=== PATIENT | male | born 1955 | race Hispanic/Latino ===

== ENCOUNTER 2019-10-19 16:28 | Inpatient (IN) | payer OTHER ==
[~2019-10-19] VITALS: Ht 165.1 cm; Wt 59.3 kg
[2019-10-19] MEDS ORDERED: METHYLPREDNISOLONE SOD SUCC 40MG/ML 1ML ONE (17:12)
[2019-10-19] MEDS ORDERED: CEFTRIAXONE SODIUM 2 GM VIAL ONE (17:12)
[2019-10-19 17:17] LABS: BASOPHILS % (AUTO) 0.1 % (0.0-5.0); EOSINOPHILS % (AUTO) 2.1 % (0.0-8.0); HEMATOCRIT 42.4 % (42-54); LYMPHOCYTES % (AUTO) 7.4 % (21.0-51.0); MEAN CORPUSCULAR HEMOGLOBIN 30.1 pg (27.0-33.0); MEAN CORPUSCULAR HGB CONC 34.7 g/dL (32.0-36.0); MEAN CORPUSCULAR VOLUME 86.7 fL (79-99); MONOCYTES % (AUTO) 4.4 % (3.0-13.0); NEUTROPHILS % (AUTO) 85.8 % (40.0-77.0); PLATELET COUNT (AUTO) 167 K/uL (130-400); RED BLOOD CELL COUNT(AUTO) 4.89 MIL/uL (4.50-6.20); RED CELL DISTRIBUTION WIDTH 12.4 % (11.0-15.5); WHITE BLOOD COUNT (AUTO) 8.2 K/uL (4.8-10.8)
[2019-10-19 17:30] LABS: CARBON DIOXIDE 28 mmol/L (21-32); CHLORIDE 97 mmol/L (101-111); CREATININE 0.9 mg/dL (0.5-1.5); GLOMERULAR FILTR. RATE CALC 90 mL/min (>60); GLUCOSE,RANDOM 258 mg/dL (70-105); POTASSIUM 3.4 mmol/L (3.5-5.1); SODIUM SERUM 137 mmol/L (136-145); UREA NITROGEN, BLOOD 18 mg/dL (7-18)
[2019-10-19 17:33] LABS: INR 0.97 (0.85-1.15); PROTHROMBIN TIME 10.5 SEC (9.6-11.6)
[2019-10-19 17:41] LABS: ALANINE AMINOTRANSFERASE 46 U/L (12-78); ASPARTATE AMINOTRANSFERASE 46 U/L (10-37); BILIRUBIN,TOTAL 0.5 mg/dL (0.2-1.0); CREATINE KINASE, TOTAL 107 U/L (21-232); MYOGLOBIN 67 ng/mL (10-92); TOTAL PROTEIN, SERUM 7.2 g/dL (6.0-8.3); TROPONIN I < 0.04 ng/mL (0.00-0.06)
[2019-10-19 17:59] LABS: APPEARANCE,URINE CLOUDY (CLEAR); BILIRUBIN,URINE SMALL (NEGATIVE); COLOR,URINE YELLOW (YELLOW); GLUCOSE, URINE (UA) 500 mg/dL (NEGATIVE); KETONES,URINE 5 mg/dL (NEGATIVE); LEUKOCYTE ESTERASE ,URINE NEGATIVE (NEGATIVE); NITRATE,URINE NEGATIVE (NEGATIVE); OCCULT BLOOD,URINE SMALL (NEGATIVE); PROTEIN,URINE 100 mg/dL (NEGATIVE)
[2019-10-19 18:15] LABS: BACTERIA,URINE Few /HPF (None Seen); RBC,URINE 0-1 /HPF (0-1); WBC,URINE 0-1 /HPF (0-1)
[2019-10-19 18:16] LABS: AMORPHOUS SEDIMENT,UR Few /LPF (None Seen); HYALINE CASTS, URINE 0-1 /LPF (0-1 /LPF); SQUAMOUS EPITHELIAL CELL,UR Rare /HPF (0-2)
[2019-10-19 18:34] LABS: ABG BASE EXCESS 1.5 mmol/L (-2.0-3.0); ABG HCO3 26.2 mmol/L (21.0-28.0); ABG OXYGEN SATURATION 91.7 % (95.0-99.0); ABG PCO2 42 mmHg (35-48)
[2019-10-19] MEDS ORDERED: FAMOTIDINE 20MG TAB 20 MG TAB ONE (19:10)
[2019-10-19] MEDS ORDERED: AZITHROMYCIN 250 MG TABLET PO ONE (19:11)
[2019-10-19] MEDS ORDERED: ALBUTEROL INHALER 90MCG/INH IH PRN (21:00)
[2019-10-19] MEDS ORDERED: ACETAMINOPHEN 325 MG TAB PO PRN (21:00)
[2019-10-19] MEDS ORDERED: ONDANSETRON HCL 4 MG/2 ML VIAL IVP PRN (21:00)
--- NOTE | 2019-10-19 21:10 | NUR ---
ADMIT NOTE ADMIT TO ROOM 403 VIA STRETCHER FROM ER. PATIENT AWAKE,ALERT, OX3, NO SOB, NO C/O PAIN AT THIS TIME, OXYGEN AT 4 L N/C , PER PATIENT FEELS BETTER THAN WHEN HE CAME IN, NON PRODUCTIVE COUGH, LEFT FOREARM 18 GAUGE CATHETER, WITH IVF INFUSING WELL, TEACH PATIENT PLAN OF CARE AND EXPECTED OUTCOME, PATIENT VERBALIZES UNDERSTANDING VIA TEACH BACK
[2019-10-19 21:20] VITALS: BP 145/74
[2019-10-19] MEDS ORDERED: BENZ-51 PO (22:10)
[2019-10-19] MEDS ORDERED: AZIT250T9 PO (22:10)
[2019-10-19] MEDS ORDERED: FLUT44HFA IH (22:10)
[2019-10-19] MEDS ORDERED: TADA10TA14 PO (22:10)
[2019-10-19] MEDS ORDERED: METF-446 PO (22:10)
[2019-10-19] MEDS ORDERED: PRED10TA3 PO (22:10)
[2019-10-19] MEDS ORDERED: ALBUTERAL IH (22:10)
[2019-10-19] MEDS ORDERED: GABA-529 PO (22:10)
[2019-10-19] MEDS ORDERED: GLIM4TAB36 PO (22:10)
[2019-10-19] MEDS ORDERED: SIMV-46 PO (22:10)
[2019-10-19] MEDS ORDERED: CEPH500C2 PO (22:10)
[2019-10-19] MEDS ORDERED: VITA1CAP17 PO (22:19)
[2019-10-19] MEDS ORDERED: AEC81 PO (22:19)
[2019-10-19] MEDS ORDERED: MULT-1203 PO (22:19)
[2019-10-19] MEDS: SODIUM CHLORIDE 0.9% 1000ML 1,000 ML IV SCH (22:42)
[2019-10-19 23:30] VITALS: BP 118/67
[2019-10-20 03:45] VITALS: BP 132/75
[2019-10-20 05:03] LABS: HEMATOCRIT 44.1 % (42-54); MEAN CORPUSCULAR HGB CONC 34.2 g/dL (32.0-36.0); MEAN CORPUSCULAR VOLUME 87.5 fL (79-99); RED BLOOD CELL COUNT(AUTO) 5.04 MIL/uL (4.50-6.20); RED CELL DISTRIBUTION WIDTH 12.6 % (11.0-15.5); WHITE BLOOD COUNT (AUTO) 8.1 K/uL (4.8-10.8)
[2019-10-20 05:29] LABS: CREATININE 0.8 mg/dL (0.5-1.5); POTASSIUM 4.1 mmol/L (3.5-5.1)
[2019-10-20 08:30] VITALS: BP 118/54
[2019-10-20] MEDS ORDERED: ENOXAPARIN SODIUM 0.5 MG/KG EACH SQ SCH (09:00)
[2019-10-20] MEDS: DEXAMETHASONE 4 MG TAB PO SCH (10:03)
[2019-10-20] MEDS: FAMOTIDINE 20MG TAB 20 MG TAB PO SCH (10:04)
[2019-10-20] MEDS: ENOXAPARIN SODIUM 40 MG/0.4 ML SYRINGE SQ SCH ×2 (10:05→20:20)
[2019-10-20] MEDS: SODIUM CHLORIDE 0.9% 1000ML 1,000 ML IV SCH ×2 (10:50→23:14)
[2019-10-20 11:37] VITALS: BP 115/64
[2019-10-20] MEDS: GUAIFENESIN-CODEINE 5 ML SYRUP PO PRN (11:59)
--- NOTE | 2019-10-20 15:06 | NUR ---
INITIAL: Call placed to pt's room. Pt requesting that CM call and speak w spouse Giselle. Call placed to Giselle(spouse) @ [phone], she mentions that prior to admission pt was independent w ambulation and ADLs. She mentions that the two of them live together. Pt does not receive any HH services or own any DME. Per Giselle, she feels safe and comfortable for pt to return home at co. She mentions however that she is beginning to have a sore throat and has already contacted her physician. Encouraged her to self quarantine, she mentions that she has a thermometer and pulse ox at home. Asked her if she would like to list an alternate emergency contact incase it is needed to which she declines. She was encouraged to seek emergency medical care if her symptoms worsened. Addendum: 10/20/19 at 1511 by MINERVA MELTON Amended: Links added.
[2019-10-20] MEDS ORDERED: PHARMACY COMMUNICATION**REMDESIVIR ORDER MISC SCH (15:30)
[2019-10-20] MEDS ORDERED: POTASSIUM CHLORIDE 20MEQ/100ML 100 ML IV PRN (15:45)
[2019-10-20] MEDS ORDERED: GLUCAGON 1MG KIT 1 MG ML IM PRN (15:45)
[2019-10-20] MEDS ORDERED: ERGOCALCIFEROL (VITAMIN D2) 50,000 UNIT CAPSULE PO ONE (15:45)
[2019-10-20] MEDS ORDERED: DEXTROSE 50%-WATER 50 ML DISP.SYRIN IV PRN (15:45)
[2019-10-20] MEDS ORDERED: LIDOCAINE HCL-MPF 1% 2ML VIAL IV PRN (15:45)
[2019-10-20 16:20] VITALS: BP 145/69
--- NOTE | 2019-10-20 16:24 | NUR ---
PT WAS PLACED ON A NRB MASK AT 15L BY RESPIRATORY AND TAUGHT PURSE LIP BREATHING AND INHALATION THERAPY WITH POSITIVE RESULTS OF OXYGENATION. PT IS CALM AND RESTING COMFORTABLY AT THIS TIME
[2019-10-20] MEDS ORDERED: COMPOUND IV REFRIGERATED 1 EACH IVSOLN MISC PRN (16:45)
[2019-10-20] MEDS: CEFTRIAXONE SODIUM 1 GM IVP SCH (17:03)
[2019-10-20] MEDS: INSULIN HUMULIN R 100 UNIT/ML 3ML SQ SCH ×2 (17:04→20:23)
[2019-10-20] MEDS: FLUTICASONE PROPIONATE 110 MCG IH SCH (17:19)
[2019-10-20] MEDS ORDERED: REMDESIVIR (EUA) 520 200 MG in SODIUM CHLORIDE 0.9% 250 ML IV SCH (18:00)
[2019-10-20] MEDS: AZITHROMYCIN 250 MG TABLET PO SCH (18:04)
[2019-10-20] MEDS: BENZONATATE 100 MG CAPSULE PO SCH (20:18)
[2019-10-20] MEDS: GABAPENTIN 100 MG CAPSULE PO SCH (20:19)
[2019-10-20] MEDS: SIMVASTATIN 20 MG TABLET PO SCH (20:19)
[2019-10-20 20:36] VITALS: BP 166/78
[2019-10-20 23:45] VITALS: BP 118/70
[2019-10-21] MEDS: GUAIFENESIN-CODEINE 5 ML SYRUP PO PRN ×3 (01:00→18:05)
[2019-10-21 03:54] LABS: ABG BASE EXCESS -0.9 mmol/L (-2.0-3.0); ABG HCO3 23.3 mmol/L (21.0-28.0); ABG OXYGEN SATURATION 74.2 % (95.0-99.0); ABG PCO2 38 mmHg (35-48)
[2019-10-21 03:59] VITALS: BP 150/66
[2019-10-21 05:35] LABS: BASOPHILS % (AUTO) 0.1 % (0.0-5.0); HEMATOCRIT 47.1 % (42-54); LYMPHOCYTES % (AUTO) 4.1 % (21.0-51.0); MEAN CORPUSCULAR HEMOGLOBIN 30.2 pg (27.0-33.0); MEAN CORPUSCULAR HGB CONC 34.6 g/dL (32.0-36.0); MEAN CORPUSCULAR VOLUME 87.2 fL (79-99); MONOCYTES % (AUTO) 1.5 % (3.0-13.0); NEUTROPHILS % (AUTO) 93.8 % (40.0-77.0); PLATELET COUNT (AUTO) 178 K/uL (130-400); RED CELL DISTRIBUTION WIDTH 12.8 % (11.0-15.5); WHITE BLOOD COUNT (AUTO) 8.8 K/uL (4.8-10.8)
[2019-10-21] MEDS: FLUTICASONE PROPIONATE 110 MCG IH SCH ×2 (05:55→17:04)
[2019-10-21 06:18] LABS: ALBUMIN 2.5 g/dL (3.5-5.0); BILIRUBIN,DIRECT 0.1 mg/dL (0.0-0.3); BILIRUBIN,TOTAL 0.5 mg/dL (0.2-1.0); CREATININE 0.8 mg/dL (0.5-1.5); MAGNESIUM 1.9 mg/dL (1.80-2.40); POTASSIUM 3.5 mmol/L (3.5-5.1)
[2019-10-21] MEDS: INSULIN HUMULIN R 100 UNIT/ML 3ML SQ SCH ×4 (06:20→21:21)
[2019-10-21 06:46] LABS: CRP QUANTITATIVE 288.4 mg/L (0.00-9.0)
[2019-10-21 08:16] VITALS: BP_SYST 133; BP_SYST 167; BP_DIAS 56; BP_DIAS 84
[2019-10-21] MEDS: ZINC SULFATE 220 CAPSULE PO SCH (08:27)
[2019-10-21] MEDS: DEXAMETHASONE 4 MG TAB PO SCH (08:27)
[2019-10-21] MEDS: BENZONATATE 100 MG CAPSULE PO SCH ×3 (08:27→21:19)
[2019-10-21] MEDS: FAMOTIDINE 20MG TAB 20 MG TAB PO SCH (08:27)
[2019-10-21] MEDS: ASCORBIC ACID 500 MG TAB PO SCH (08:27)
[2019-10-21] MEDS: ENOXAPARIN SODIUM 40 MG/0.4 ML SYRINGE SQ SCH ×2 (08:27→21:24)
[2019-10-21] MEDS: GABAPENTIN 100 MG CAPSULE PO SCH ×2 (08:28→21:26)
[2019-10-21] MEDS: ASPIRIN 81 MG EC TAB PO SCH (08:28)
--- NOTE | 2019-10-21 08:41 | NUR ---
PT REMAINS IN PRONE POSITION WITH HIGH FLOW OXYGEN IN PLACE, TELEMETRY IN PLACE, NO CURRENT S/S OF RESP DISTRESS OR PAIN. BRUISES OF VARIOUS STAGES NOTED ON PT UPPER LEFT SCAPULA AND LOWER LEFT FLANK.
[2019-10-21] MEDS: TADALAFIL 10 MG PO SCH (09:00)
--- NOTE | 2019-10-21 09:17 | NUR ---
CONTINUES TO REST IN PRONE POSITION WITH HIGH FLOW O2 AND NRB MASK AT 15L IN PLACE. A/OX4 WITH NO CURRENT C/O PAIN OR DISCOMFORT. CALM AND PLEASANT.
--- NOTE | 2019-10-21 09:38 | NUR ---
CONTINUES TO REST IN A PRONE POSITION WITH NRB MASK AT 15L AND HI FLOW O2 AT 97%, TELEMETRY IN PLACE, SR WITH NO ECTOPY, A/OX4, CALM AND PLEASANT SURFING ON HIS PHONE. NO CURRENT S/S OR C/O PAIN. PT UNDERSTAND IT IS PREFERRED HE STAY PRONE FOR 16 HOURS DAILY OR HE CAN TOLERATE
--- NOTE | 2019-10-21 10:38 | NUR ---
NO NEW CHANGES IN PT STATUS, REMAINS ON HI FLOW O2 AND 15LNRB MASK AT 98% DISPLAYS EVEN RESP. A/O X4, WITH NO CURRENT C/O PAIN OR DISCOMFORT. LYING PRONE.
--- NOTE | 2019-10-21 11:36 | NUR ---
PT CONTINUES TO RESP WITH HI FLOW OXYGEN AND NRB MASK AT 15L, DISPLAYS 97% WITH EVEN UNLABORED RESP WITH OCCASIONAL COUGHING EPISODES. NEW ORDER TO DISCONTINUE IVF PER David DHILLON NP. NO CURRENT C/O PAIN OR DISCOMFORT. CALM AND PLEASANT.
[2019-10-21 11:40] VITALS: BP 144/57
[2019-10-21] MEDS: SODIUM CHLORIDE 0.9% 1000ML 1,000 ML IV SCH (12:33)
--- NOTE | 2019-10-21 12:52 | NUR ---
REMAINS CALM AND RESTING WITH HI FLOW OXYGEN AND NRB MASK AT 15L IN PLACE. NO CURRENT S/S OF PAIN OR RESP DIFFICULTY AT THIS TIME
--- NOTE | 2019-10-21 13:58 | NUR ---
REMAINS AT REST IN A PRONE POSITION WITH NRB MASK AT 15 AND HI FLOW OXYGEN. O2 SATS OF 98-100% NOTED AT THIS TIME. NO S/S OF PAIN OR DISCOMFORT.
[2019-10-21 16:22] VITALS: BP 151/60
[2019-10-21] MEDS: CEFTRIAXONE SODIUM 1 GM IVP SCH (16:32)
[2019-10-21] MEDS: REMDESIVIR (EUA) 520 100 MG in SODIUM CHLORIDE 0.9% 250 ML IV SCH (16:59)
--- NOTE | 2019-10-21 17:22 | NUR ---
REMAINS RESTING IN A SIDE PRONE POSITION WITH IV ABX PATENT, NRB MASK AT 15L WITH HI FLOW OXYGEN IN PLACE DISPLAYS 98%, NO CURRENT S/S OF RESP DIFFICULTY OR DISTRESS, NO CURRENT S/S OF PAIN OR DISCOMFORT.
[2019-10-21] MEDS: AZITHROMYCIN 250 MG TABLET PO SCH (17:56)
--- NOTE | 2019-10-21 18:17 | NUR ---
ENCOURAGED PT TO REST PRONE OR ON HIS SIDE, CONTINUED HI FLOW OXYGEN WITH NRB MASK IN PLACE AT 15L. IV ABX PATENT, A/OX4, DENIES PAIN OR DISCOMFORT AT THIS TIME, NO CURRENT RESP DISTRESS
[2019-10-21 19:20] VITALS: BP 140/69
[2019-10-21] MEDS: SIMVASTATIN 20 MG TABLET PO SCH (21:19)
[2019-10-22] VITALS (7 sets, daily range): BP systolic 121–187; BP diastolic 52–89
--- NOTE | 2019-10-22 02:17 | NUR ---
First unit of FFP completed with no s/s of transfusion reaction observed. Patient is in stable condition. He continued on high flow @50% plus 6 ltrs of NC with POX between 92 to 98%. Will continue to monitor.
[2019-10-22] MEDS: SODIUM CHLORIDE 0.9% 1000ML 1,000 ML IV SCH ×2 (02:20→15:40)
[2019-10-22] MEDS: FLUTICASONE PROPIONATE 110 MCG IH SCH ×2 (06:00→19:03)
[2019-10-22] MEDS: PHARMACY COMMUNICATION MISC SCH (06:00)
[2019-10-22 06:24] LABS: BASOPHILS % (AUTO) 0.1 % (0.0-5.0); HEMATOCRIT 44.9 % (42-54); LYMPHOCYTES % (AUTO) 3.5 % (21.0-51.0); MEAN CORPUSCULAR HEMOGLOBIN 30.3 pg (27.0-33.0); MEAN CORPUSCULAR HGB CONC 34.5 g/dL (32.0-36.0); MEAN CORPUSCULAR VOLUME 87.7 fL (79-99); MONOCYTES % (AUTO) 3.2 % (3.0-13.0); NEUTROPHILS % (AUTO) 92.9 % (40.0-77.0); PLATELET COUNT (AUTO) 197 K/uL (130-400); RED BLOOD CELL COUNT(AUTO) 5.12 MIL/uL (4.50-6.20); RED CELL DISTRIBUTION WIDTH 12.6 % (11.0-15.5)
[2019-10-22 06:54] LABS: ALBUMIN 2.5 g/dL (3.5-5.0); BILIRUBIN,TOTAL 0.7 mg/dL (0.2-1.0); CREATININE 0.8 mg/dL (0.5-1.5); MAGNESIUM 2.3 mg/dL (1.80-2.40); PHOSPHORUS 2.6 mg/dL (2.5-4.9); POTASSIUM 3.5 mmol/L (3.5-5.1); TOTAL PROTEIN, SERUM 6.8 g/dL (6.0-8.3)
[2019-10-22] MEDS: INSULIN HUMULIN R 100 UNIT/ML 3ML SQ SCH ×4 (06:56→21:00)
--- NOTE | 2019-10-22 07:13 | NUR ---
Bed bath given at 0630. Patient stopped breathing at 0700. [employer] supervisor Ruth portillo. Report given to AM nurse. Addendum: 10/22/19 at 1936 by NICKY GIRON RN RN Disregard above note. Incorrect pt.
--- NOTE | 2019-10-22 08:47 | NUR ---
notified brandon omalley of the bp she ordered hydralazine 10 mg iv prn q6 hr for sbp of greater than 160
[2019-10-22] MEDS: ZINC SULFATE 220 CAPSULE PO SCH (08:59)
[2019-10-22] MEDS: ASCORBIC ACID 500 MG TAB PO SCH (08:59)
[2019-10-22] MEDS: FAMOTIDINE 20MG TAB 20 MG TAB PO SCH (09:00)
[2019-10-22] MEDS: DEXAMETHASONE 4 MG TAB PO SCH (09:00)
[2019-10-22] MEDS: ASPIRIN 81 MG EC TAB PO SCH (09:00)
[2019-10-22] MEDS: TADALAFIL 10 MG PO SCH (09:00)
[2019-10-22] MEDS: GABAPENTIN 100 MG CAPSULE PO SCH ×2 (09:00→20:32)
[2019-10-22] MEDS: ENOXAPARIN SODIUM 40 MG/0.4 ML SYRINGE SQ SCH ×2 (09:01→21:31)
[2019-10-22] MEDS: BENZONATATE 100 MG CAPSULE PO SCH ×3 (09:01→20:32)
[2019-10-22] MEDS: HYDRALAZINE HCL 20 MG/ML VIAL IV PRN (09:03)
--- NOTE | 2019-10-22 10:28 | NUR ---
RD NOTIFICATION Pt admitted with Positive COVID PNA. Pt tolerating 75gm CCD with no report of GI distress. Improved PO intake as of this morning, from 0% over the weekend to 25%, as per RN. Pt with NRB in place as per EMR. Hx DM and HTN. .. Recommend Glucerna BID RD to continue to monitor. Please notify as additional nutrition concerns arise. Thank you.
--- NOTE | 2019-10-22 16:27 | NUR ---
report called to trini london patient ready to be discharge.
[2019-10-22] MEDS: CEFTRIAXONE SODIUM 1 GM IVP SCH (16:37)
[2019-10-22] MEDS: POTASSIUM CHLORIDE 20 MEQ ERTAB PO PRN (17:25)
[2019-10-22] MEDS: REMDESIVIR (EUA) 520 100 MG in SODIUM CHLORIDE 0.9% 250 ML IV SCH (19:03)
[2019-10-22] MEDS: SIMVASTATIN 20 MG TABLET PO SCH (20:32)
[2019-10-22] MEDS: AZITHROMYCIN 250 MG TABLET PO SCH (20:32)
[2019-10-23 00:06] VITALS: BP 161/80
[2019-10-23] MEDS: GUAIFENESIN-CODEINE 5 ML SYRUP PO PRN ×2 (00:33→05:38)
[2019-10-23 03:55] VITALS: BP 154/74
[2019-10-23] MEDS: SODIUM CHLORIDE 0.9% 1000ML 1,000 ML IV SCH (04:15)
--- NOTE | 2019-10-23 04:23 | NUR ---
RT at bedside Pt placed on pulse oximetry due to desaturation of 82%. Patient saturating at 89%. RT increased High Flow FiO2 rate. Will continue to monitor.
[2019-10-23 04:27] LABS: ABG BASE EXCESS -4.5 mmol/L (-2.0-3.0); ABG HCO3 20.9 mmol/L (21.0-28.0); ABG OXYGEN SATURATION 52.6 % (95.0-99.0); ABG PCO2 40 mmHg (35-48)
--- NOTE | 2019-10-23 04:47 | NUR ---
RT at bedside RT at bedside redrawing ABG. Concern for ABG at 0425 as a VBG. Will confirm with redraw.
[2019-10-23 04:57] LABS: ABG BASE EXCESS -3.7 mmol/L (-2.0-3.0); ABG HCO3 20.7 mmol/L (21.0-28.0); ABG OXYGEN SATURATION 81.1 % (95.0-99.0); ABG PCO2 36 mmHg (35-48)
[2019-10-23] MEDS: PHARMACY COMMUNICATION MISC SCH (05:12)
[2019-10-23] MEDS: FLUTICASONE PROPIONATE 110 MCG IH SCH ×2 (05:12→18:00)
[2019-10-23 05:58] LABS: BASOPHILS % (AUTO) 0.1 % (0.0-5.0); HEMATOCRIT 49.5 % (42-54); LYMPHOCYTES % (AUTO) 6.5 % (21.0-51.0); MEAN CORPUSCULAR HEMOGLOBIN 30.4 pg (27.0-33.0); MEAN CORPUSCULAR HGB CONC 34.5 g/dL (32.0-36.0); MEAN CORPUSCULAR VOLUME 87.9 fL (79-99); MONOCYTES % (AUTO) 4.4 % (3.0-13.0); NEUTROPHILS % (AUTO) 88.5 % (40.0-77.0); PLATELET COUNT (AUTO) 270 K/uL (130-400); RED BLOOD CELL COUNT(AUTO) 5.63 MIL/uL (4.50-6.20); RED CELL DISTRIBUTION WIDTH 12.9 % (11.0-15.5); WHITE BLOOD COUNT (AUTO) 15.9 K/uL (4.8-10.8)
[2019-10-23] MEDS: INSULIN HUMULIN R 100 UNIT/ML 3ML SQ SCH ×4 (06:08→21:44)
[2019-10-23 06:19] LABS: ALBUMIN 2.8 g/dL (3.5-5.0); BILIRUBIN,DIRECT 0.2 mg/dL (0.0-0.3); BILIRUBIN,TOTAL 0.8 mg/dL (0.2-1.0); CREATININE 0.7 mg/dL (0.5-1.5); MAGNESIUM 2.4 mg/dL (1.80-2.40); POTASSIUM 3.5 mmol/L (3.5-5.1); TOTAL PROTEIN, SERUM 7.5 g/dL (6.0-8.3)
[2019-10-23 08:39] VITALS: BP 126/69
--- NOTE | 2019-10-23 08:45 | NUR ---
MD VISIT FARZANEH MIRANDA BREAD WRAPPER OPERATOR @ BEDSIDE. UPDATED ON PT'S STATUS & PLAN OF CARE. ORDERS RECEIVED & ENTERED.
[2019-10-23] MEDS: TADALAFIL 10 MG PO SCH (09:00)
[2019-10-23] MEDS: ZINC SULFATE 220 CAPSULE PO SCH (09:17)
[2019-10-23] MEDS: ASCORBIC ACID 500 MG TAB PO SCH (09:17)
[2019-10-23] MEDS: POTASSIUM CHLORIDE 20 MEQ ERTAB PO PRN ×2 (09:18→10:58)
[2019-10-23] MEDS: FAMOTIDINE 20MG TAB 20 MG TAB PO SCH (09:18)
[2019-10-23] MEDS: GABAPENTIN 100 MG CAPSULE PO SCH ×2 (09:18→20:38)
[2019-10-23] MEDS: BENZONATATE 100 MG CAPSULE PO SCH ×3 (09:18→20:39)
[2019-10-23] MEDS: ASPIRIN 81 MG EC TAB PO SCH (09:18)
[2019-10-23] MEDS: DEXAMETHASONE SOD PHOSPHATE 4 MG/ML 1ML VIAL IVP SCH (09:19)
[2019-10-23] MEDS: ENOXAPARIN SODIUM 40 MG/0.4 ML SYRINGE SQ SCH ×2 (09:19→20:40)
[2019-10-23] MEDS: FUROSEMIDE 10 MG/ML 2ML VIAL IV SCH ×2 (09:27→20:37)
[2019-10-23] MEDS: DIAZEPAM 5 MG TABLET PO PRN ×2 (09:28→20:39)
--- NOTE | 2019-10-23 09:35 | NUR ---
STATUS PT PLACED ON BIPAP BY RT ORDERED. PT ASSISTED TO PRONE POSITION @ THIS TIME. TOLERATED WELL. CONT PULSE OX SET UP, 100% SATs. WILL CONTINUE TO MONITOR.
[2019-10-23 12:34] VITALS: BP 117/68
[2019-10-23 15:38] VITALS: BP 114/71
[2019-10-23] MEDS: REMDESIVIR (EUA) 520 100 MG in SODIUM CHLORIDE 0.9% 250 ML IV SCH (17:41)
[2019-10-23] MEDS: AZITHROMYCIN 250 MG TABLET PO SCH (17:41)
[2019-10-23 20:00] VITALS: BP 119/80
[2019-10-23] MEDS: SIMVASTATIN 20 MG TABLET PO SCH (20:38)
--- NOTE | 2019-10-23 22:00 | NUR ---
PT STATUS NURSE RESPONDED TO CALL [facility] TO FIND THAT PT HAD REMOVED BIPAP AND WAS STANDING NEXT TO BED ATTEMPTING TO GO TO RESTROOM. PT ASSISTED BACK TO BED BIPAP REAPPLIED PULSE 0X 97%. PT INSTRUCTED NOT TO REMOVE BIPAP, HE APOLOGIZED AND STATES HE FELT LIKE HE HAD TO HAVE BM. PT REMAINS A&OX3. BED ALARM INITIATED AT THIS TIME.
[2019-10-24] VITALS: BP 142/83
[2019-10-24 03:56] LABS: HEMATOCRIT 45.3 % (42-54); MEAN CORPUSCULAR HEMOGLOBIN 29.8 pg (27.0-33.0); MEAN CORPUSCULAR HGB CONC 34.4 g/dL (32.0-36.0); MEAN CORPUSCULAR VOLUME 86.5 fL (79-99); RED BLOOD CELL COUNT(AUTO) 5.24 MIL/uL (4.50-6.20); RED CELL DISTRIBUTION WIDTH 12.9 % (11.0-15.5); WHITE BLOOD COUNT (AUTO) 11.3 K/uL (4.8-10.8)
[2019-10-24 04:00] VITALS: BP 147/69
[2019-10-24 04:08] LABS: ALBUMIN 2.4 g/dL (3.5-5.0); BILIRUBIN,DIRECT 0.2 mg/dL (0.0-0.3); BILIRUBIN,TOTAL 0.9 mg/dL (0.2-1.0); CREATININE 0.6 mg/dL (0.5-1.5); MAGNESIUM 2.3 mg/dL (1.80-2.40); POTASSIUM 3.7 mmol/L (3.5-5.1); TOTAL PROTEIN, SERUM 6.5 g/dL (6.0-8.3)
[2019-10-24] MEDS: PHARMACY COMMUNICATION MISC SCH (04:52)
--- NOTE | 2019-10-24 05:23 | NUR ---
RASH NOTED ERYTHEMATOUS RAISED RASH TO CHEST AND ARMS. PT REPORTS SITES ARE ITCHY. HE DENIES ANY KNOWN ALLERGIES. PAGE TO ONCALL PROVIDER ERNESTINE SOFIA AWAITING RETURN CALL. Addendum: 10/24/19 at 0537 by ARIANA MCCABE RN RN RETURN CALL FROM TEACHER SELECTION SPECIALIST ERNESTINE SOFIA ORDERS RECEIVED FOR BENADRYL 25MG IVP Q8 HRS PRN ALSO INSTRUCTED TO HOLD AM DOSE OF ROCEPHIN AND HAVE MORNING SHIFT FOLLOW UP WITH PRIMARY TO ASSESS RASH AND FOLLOW UP WITH ATTENDING.
[2019-10-24] MEDS ORDERED: DiphenhydrAMINE HCL 50 MG/ML VIAL ONE (05:43)
[2019-10-24] MEDS ORDERED: DiphenhydrAMINE HCL 50 MG/ML VIAL IVP PRN (05:45)
[2019-10-24] MEDS: POTASSIUM CHLORIDE 20 MEQ ERTAB PO PRN ×2 (05:48→17:37)
[2019-10-24] MEDS: INSULIN HUMULIN R 100 UNIT/ML 3ML SQ SCH ×4 (05:49→21:22)
[2019-10-24] MEDS: FLUTICASONE PROPIONATE 110 MCG IH SCH ×2 (06:31→17:18)
[2019-10-24 06:42] LABS: ABG BASE EXCESS 3.6 mmol/L (-2.0-3.0); ABG HCO3 27.4 mmol/L (21.0-28.0); ABG OXYGEN SATURATION 93.3 % (95.0-99.0); ABG PCO2 39 mmHg (35-48)
[2019-10-24] MEDS: GABAPENTIN 100 MG CAPSULE PO SCH ×2 (08:30→21:20)
[2019-10-24] MEDS: ASPIRIN 81 MG EC TAB PO SCH (08:31)
[2019-10-24] MEDS: ZINC SULFATE 220 CAPSULE PO SCH (08:31)
[2019-10-24] MEDS: ASCORBIC ACID 500 MG TAB PO SCH (08:31)
[2019-10-24] MEDS: CEFTRIAXONE SODIUM 1 GM IVP SCH (08:31)
[2019-10-24] MEDS: FUROSEMIDE 10 MG/ML 2ML VIAL IV SCH ×2 (08:31→21:21)
[2019-10-24] MEDS: FAMOTIDINE 20MG TAB 20 MG TAB PO SCH (08:31)
[2019-10-24] MEDS: BENZONATATE 100 MG CAPSULE PO SCH ×3 (08:31→21:20)
[2019-10-24] MEDS: ENOXAPARIN SODIUM 40 MG/0.4 ML SYRINGE SQ SCH ×2 (08:32→21:20)
[2019-10-24] MEDS: DEXAMETHASONE SOD PHOSPHATE 4 MG/ML 1ML VIAL IVP SCH (08:33)
[2019-10-24] MEDS: TADALAFIL 10 MG PO SCH (09:00)
[2019-10-24 09:15] VITALS: BP 139/76
[2019-10-24 12:25] VITALS: BP 141/77
[2019-10-24 16:00] VITALS: BP 140/70
[2019-10-24] MEDS: AZITHROMYCIN 250 MG TABLET PO SCH (17:17)
[2019-10-24] MEDS: REMDESIVIR (EUA) 520 100 MG in SODIUM CHLORIDE 0.9% 250 ML IV SCH (17:18)
[2019-10-24 19:56] VITALS: BP 133/67
[2019-10-24] MEDS: SIMVASTATIN 20 MG TABLET PO SCH (21:20)
--- NOTE | 2019-10-24 23:13 | NUR ---
02 SAT NOTED 02 SAT DROPPING TO 85 WHILE PT ASLEEP AND CURRENTLY ON NRB @15L, APPLIED NC @7L 02 SAT RANGING 88-90. RT NOTIFIED TO EVAL PT TO REAPPLY HIGHFLOW OR BIPAP WHILE PT IS ASLEEP AND CURRENTLY AT BEDSIDE APPLYING HIGH FLOW NC. Addendum: 10/25/19 at 0026 by ARIANA MCCABE RN RN PT WAS TRIALED ON HIGH FLOW NC @ 50 L 100% FIO2 FOR SLEEP, 02 SAT 86-88 AND PT APPEAR INCREASED WORK OF BREATHING, PLACED ON BIPAP SHORTLY AFTER AND 02 SAT REMAINING 92-95%.
[2019-10-25] VITALS (7 sets, daily range): BP systolic 118–137; BP diastolic 59–76
[2019-10-25 04:22] LABS: ABG HCO3 29.7 mmol/L (21.0-28.0); ABG OXYGEN SATURATION 80.9 % (95.0-99.0); ABG PCO2 40 mmHg (35-48)
[2019-10-25 04:41] LABS: BASOPHILS % (AUTO) 0.2 % (0.0-5.0); EOSINOPHILS % (AUTO) 0.2 % (0.0-8.0); HEMATOCRIT 48.9 % (42-54); LYMPHOCYTES % (AUTO) 3.8 % (21.0-51.0); MEAN CORPUSCULAR HEMOGLOBIN 30.6 pg (27.0-33.0); MEAN CORPUSCULAR HGB CONC 35.6 g/dL (32.0-36.0); MEAN CORPUSCULAR VOLUME 85.9 fL (79-99); MONOCYTES % (AUTO) 2.3 % (3.0-13.0); NEUTROPHILS % (AUTO) 92.9 % (40.0-77.0); PLATELET COUNT (AUTO) 228 K/uL (130-400); RED BLOOD CELL COUNT(AUTO) 5.69 MIL/uL (4.50-6.20); RED CELL DISTRIBUTION WIDTH 12.6 % (11.0-15.5); WHITE BLOOD COUNT (AUTO) 9.5 K/uL (4.8-10.8)
[2019-10-25] MEDS: PHARMACY COMMUNICATION MISC SCH (05:09)
[2019-10-25 05:16] LABS: ALBUMIN 2.3 g/dL (3.5-5.0); CREATININE 0.7 mg/dL (0.5-1.5); PHOSPHORUS 2.8 mg/dL (2.5-4.9); POTASSIUM 3.2 mmol/L (3.5-5.1); TOTAL PROTEIN, SERUM 6.2 g/dL (6.0-8.3)
[2019-10-25] MEDS: POTASSIUM CHLORIDE 20 MEQ ERTAB PO PRN ×2 (06:06→10:28)
[2019-10-25] MEDS: INSULIN HUMULIN R 100 UNIT/ML 3ML SQ SCH ×4 (06:12→21:32)
[2019-10-25] MEDS: TADALAFIL 10 MG PO SCH (09:00)
[2019-10-25] MEDS ORDERED: LOPERAMIDE HCL 2 MG CAP PO ONE (10:10)
[2019-10-25] MEDS: ASPIRIN 81 MG EC TAB PO SCH (10:27)
[2019-10-25] MEDS: ZINC SULFATE 220 CAPSULE PO SCH (10:27)
[2019-10-25] MEDS: GABAPENTIN 100 MG CAPSULE PO SCH ×2 (10:27→21:32)
[2019-10-25] MEDS: ASCORBIC ACID 500 MG TAB PO SCH (10:27)
[2019-10-25] MEDS: FAMOTIDINE 20MG TAB 20 MG TAB PO SCH (10:27)
[2019-10-25] MEDS: FUROSEMIDE 10 MG/ML 2ML VIAL IV SCH ×2 (10:28→21:34)
[2019-10-25] MEDS: BENZONATATE 100 MG CAPSULE PO SCH ×3 (10:28→21:32)
[2019-10-25] MEDS: CEFTRIAXONE SODIUM 1 GM IVP SCH (10:28)
[2019-10-25] MEDS: ENOXAPARIN SODIUM 40 MG/0.4 ML SYRINGE SQ SCH ×2 (10:29→21:33)
[2019-10-25] MEDS: DEXAMETHASONE SOD PHOSPHATE 4 MG/ML 1ML VIAL IVP SCH (10:46)
[2019-10-25] MEDS: FLOVENT IH SCH ×2 (10:46→21:32)
[2019-10-25] MEDS ORDERED: LOPERAMIDE HCL 2 MG CAP PO PRN (11:45)
[2019-10-25] MEDS ORDERED: LOPERAMIDE HCL 2 MG CAP PO SCH (13:45)
[2019-10-25] MEDS: SIMVASTATIN 20 MG TABLET PO SCH (21:33)
[2019-10-26] MEDS: POTASSIUM CHLORIDE 20 MEQ ERTAB PO PRN (02:25)
[2019-10-26 03:00] VITALS: BP 126/96
[2019-10-26 04:10] LABS: BASOPHILS % (AUTO) 0.2 % (0.0-5.0); EOSINOPHILS % (AUTO) 0.1 % (0.0-8.0); LYMPHOCYTES % (AUTO) 2.4 % (21.0-51.0); MEAN CORPUSCULAR HEMOGLOBIN 30.3 pg (27.0-33.0); MEAN CORPUSCULAR HGB CONC 34.9 g/dL (32.0-36.0); MEAN CORPUSCULAR VOLUME 86.9 fL (79-99); MONOCYTES % (AUTO) 2.2 % (3.0-13.0); NEUTROPHILS % (AUTO) 94.2 % (40.0-77.0); PLATELET COUNT (AUTO) 195 K/uL (130-400); RED BLOOD CELL COUNT(AUTO) 5.41 MIL/uL (4.50-6.20); RED CELL DISTRIBUTION WIDTH 12.5 % (11.0-15.5); WHITE BLOOD COUNT (AUTO) 13.2 K/uL (4.8-10.8)
[2019-10-26 04:26] LABS: ALBUMIN 2.2 g/dL (3.5-5.0); BILIRUBIN,TOTAL 0.8 mg/dL (0.2-1.0); CREATININE 0.7 mg/dL (0.5-1.5); MAGNESIUM 2.1 mg/dL (1.80-2.40); PHOSPHORUS 3.2 mg/dL (2.5-4.9); POTASSIUM 3.9 mmol/L (3.5-5.1); TOTAL PROTEIN, SERUM 6.2 g/dL (6.0-8.3)
[2019-10-26 04:30] LABS: ABG BASE EXCESS 4.9 mmol/L (-2.0-3.0); ABG HCO3 29.3 mmol/L (21.0-28.0); ABG OXYGEN SATURATION 86.7 % (95.0-99.0); ABG PCO2 42 mmHg (35-48)
[2019-10-26] MEDS: INSULIN HUMULIN R 100 UNIT/ML 3ML SQ SCH ×4 (07:03→21:52)
[2019-10-26 08:00] VITALS: BP 142/61
[2019-10-26] MEDS: FLOVENT IH SCH ×2 (08:03→21:10)
[2019-10-26] MEDS: DEXAMETHASONE SOD PHOSPHATE 4 MG/ML 1ML VIAL IVP SCH (08:03)
[2019-10-26] MEDS: GABAPENTIN 100 MG CAPSULE PO SCH ×2 (08:04→21:10)
[2019-10-26] MEDS: ASPIRIN 81 MG EC TAB PO SCH (08:04)
[2019-10-26] MEDS: ASCORBIC ACID 500 MG TAB PO SCH (08:04)
[2019-10-26] MEDS: ENOXAPARIN SODIUM 40 MG/0.4 ML SYRINGE SQ SCH ×2 (08:04→21:10)
[2019-10-26] MEDS: FAMOTIDINE 20MG TAB 20 MG TAB PO SCH (08:04)
[2019-10-26] MEDS: ZINC SULFATE 220 CAPSULE PO SCH (08:04)
[2019-10-26] MEDS: TADALAFIL 10 MG PO SCH (08:05)
[2019-10-26] MEDS: BENZONATATE 100 MG CAPSULE PO SCH ×3 (08:17→21:10)
[2019-10-26] MEDS: FUROSEMIDE 10 MG/ML 2ML VIAL IV SCH ×2 (08:17→21:10)
[2019-10-26 12:10] VITALS: BP 133/65
[2019-10-26 16:00] VITALS: BP 137/65
[2019-10-26] MEDS ORDERED: DIAZEPAM 5 MG TABLET PO PRN (16:45)
[2019-10-26 20:42] VITALS: BP 162/84
[2019-10-26] MEDS: SIMVASTATIN 20 MG TABLET PO SCH (21:10)
--- NOTE | 2019-10-26 22:00 | NUR ---
Pts , Giselle, called concerned about pts condition; spouse was informed of pts current vitals WNL and that he was asleep resting; Giselle voiced the pt needed anxiety meds in which pt received Gabapentin before he fell asleep and has Valium ordered however did not request and has been able to sleep without medication; no distress noted and reassured although requests for call from physician/medical team; will pass on to next shift for acknowledgement to medical staff team. Donato, RN
[2019-10-26 23:54] VITALS: BP 124/50
[2019-10-27] VITALS (9 sets, daily range): BP systolic 123–155; BP diastolic 58–82
[2019-10-27 04:10] LABS: ABG BASE EXCESS 8.5 mmol/L (-2.0-3.0); ABG HCO3 33.1 mmol/L (21.0-28.0); ABG OXYGEN SATURATION 87.4 % (95.0-99.0); ABG PCO2 45 mmHg (35-48)
[2019-10-27 04:43] LABS: BASOPHILS % (AUTO) 0.1 % (0.0-5.0); EOSINOPHILS % (AUTO) 0.1 % (0.0-8.0); HEMATOCRIT 44.9 % (42-54); LYMPHOCYTES % (AUTO) 2.1 % (21.0-51.0); MEAN CORPUSCULAR HEMOGLOBIN 30.9 pg (27.0-33.0); MEAN CORPUSCULAR HGB CONC 35.9 g/dL (32.0-36.0); MEAN CORPUSCULAR VOLUME 86.2 fL (79-99); MONOCYTES % (AUTO) 1.6 % (3.0-13.0); NEUTROPHILS % (AUTO) 95.3 % (40.0-77.0); PLATELET COUNT (AUTO) 229 K/uL (130-400); RED BLOOD CELL COUNT(AUTO) 5.21 MIL/uL (4.50-6.20); RED CELL DISTRIBUTION WIDTH 12.4 % (11.0-15.5); WHITE BLOOD COUNT (AUTO) 14.5 K/uL (4.8-10.8)
[2019-10-27 05:03] LABS: ALBUMIN 2.2 g/dL (3.5-5.0); BILIRUBIN,TOTAL 0.8 mg/dL (0.2-1.0); CREATININE 0.6 mg/dL (0.5-1.5); MAGNESIUM 2.1 mg/dL (1.80-2.40); PHOSPHORUS 3.2 mg/dL (2.5-4.9); POTASSIUM 3.7 mmol/L (3.5-5.1); TOTAL PROTEIN, SERUM 6.4 g/dL (6.0-8.3)
[2019-10-27] MEDS: INSULIN HUMULIN R 100 UNIT/ML 3ML SQ SCH ×4 (06:07→21:14)
[2019-10-27] MEDS: TADALAFIL 10 MG PO SCH (09:00)
[2019-10-27] MEDS: BENZONATATE 100 MG CAPSULE PO SCH ×3 (09:31→20:57)
[2019-10-27] MEDS: FUROSEMIDE 10 MG/ML 2ML VIAL IV SCH ×2 (09:31→20:55)
[2019-10-27] MEDS: ASCORBIC ACID 500 MG TAB PO SCH (09:31)
[2019-10-27] MEDS: FAMOTIDINE 20MG TAB 20 MG TAB PO SCH (09:31)
[2019-10-27] MEDS: ENOXAPARIN SODIUM 40 MG/0.4 ML SYRINGE SQ SCH ×2 (09:31→20:55)
[2019-10-27] MEDS: ZINC SULFATE 220 CAPSULE PO SCH (09:31)
[2019-10-27] MEDS: GABAPENTIN 100 MG CAPSULE PO SCH ×2 (09:31→20:56)
[2019-10-27] MEDS: DEXAMETHASONE SOD PHOSPHATE 4 MG/ML 1ML VIAL IVP SCH (09:32)
[2019-10-27] MEDS: ASPIRIN 81 MG EC TAB PO SCH (09:32)
[2019-10-27] MEDS: FLOVENT IH SCH ×2 (09:33→21:18)
--- NOTE | 2019-10-27 12:43 | NUR ---
FARZANEH MIRANDA NP IS MAKING HIS ROUNDS.
[2019-10-27] MEDS: POTASSIUM CHLORIDE 20 MEQ ERTAB PO PRN (16:24)
[2019-10-27] MEDS: DIPHENHYDRAMINE HCL 25 MG CAPSULE PO SCH (16:45)
[2019-10-27] MEDS: SIMVASTATIN 20 MG TABLET PO SCH (20:56)
[2019-10-28] VITALS (22 sets, daily range): BP systolic 131–171; BP diastolic 65–82
[2019-10-28] MEDS: DIPHENHYDRAMINE HCL 25 MG CAPSULE PO SCH ×4 (00:59→21:31)
[2019-10-28 03:51] LABS: ABG BASE EXCESS 10.1 mmol/L (-2.0-3.0); ABG HCO3 35.3 mmol/L (21.0-28.0); ABG OXYGEN SATURATION 89.8 % (95.0-99.0); ABG PCO2 49 mmHg (35-48)
[2019-10-28 05:15] LABS: BASOPHILS % (AUTO) 0.1 % (0.0-5.0); EOSINOPHILS % (AUTO) 0.1 % (0.0-8.0); HEMATOCRIT 46.6 % (42-54); LYMPHOCYTES % (AUTO) 1.5 % (21.0-51.0); MEAN CORPUSCULAR HEMOGLOBIN 30.6 pg (27.0-33.0); MEAN CORPUSCULAR HGB CONC 35.4 g/dL (32.0-36.0); MEAN CORPUSCULAR VOLUME 86.3 fL (79-99); MONOCYTES % (AUTO) 1.4 % (3.0-13.0); NEUTROPHILS % (AUTO) 96.1 % (40.0-77.0); PLATELET COUNT (AUTO) 254 K/uL (130-400); RED CELL DISTRIBUTION WIDTH 12.6 % (11.0-15.5); WHITE BLOOD COUNT (AUTO) 15.9 K/uL (4.8-10.8)
[2019-10-28 05:30] LABS: CREATININE 0.8 mg/dL (0.5-1.5); POTASSIUM 3.5 mmol/L (3.5-5.1)
[2019-10-28] MEDS: INSULIN HUMULIN R 100 UNIT/ML 3ML SQ SCH ×4 (07:29→21:30)
[2019-10-28] MEDS: ZINC SULFATE 220 CAPSULE PO SCH (09:00)
[2019-10-28] MEDS: FAMOTIDINE 20MG TAB 20 MG TAB PO SCH (09:00)
[2019-10-28] MEDS: ENOXAPARIN SODIUM 40 MG/0.4 ML SYRINGE SQ SCH ×2 (09:00→21:10)
[2019-10-28] MEDS: TADALAFIL 10 MG PO SCH (09:00)
[2019-10-28] MEDS: FLOVENT IH SCH ×2 (09:00→21:30)
[2019-10-28] MEDS: DEXAMETHASONE SOD PHOSPHATE 4 MG/ML 1ML VIAL IVP SCH (09:00)
[2019-10-28] MEDS: BENZONATATE 100 MG CAPSULE PO SCH ×3 (09:01→21:11)
[2019-10-28] MEDS: ASCORBIC ACID 500 MG TAB PO SCH (09:01)
[2019-10-28] MEDS: ASPIRIN 81 MG EC TAB PO SCH (09:01)
[2019-10-28] MEDS: GABAPENTIN 100 MG CAPSULE PO SCH ×2 (09:01→21:10)
[2019-10-28] MEDS: FUROSEMIDE 10 MG/ML 2ML VIAL IV SCH ×2 (09:02→21:09)
--- NOTE | 2019-10-28 10:00 | NUR ---
PATIENT & FAMILY UPDATE PATIENT'S , ADI, WAS UPDATED ABOUT EVERYTHING WITH PATIENT AND SPOKE WITH PATIENT ON THE PHONE. SATISFIED WITH INFORMATION RECEIVED. PATIENT HAS BEEN PLACED IN PRONE POSITION. WILL CONTINUE TO MONITOR
--- NOTE | 2019-10-28 16:04 | NUR ---
FAMILY MEMBER PATIENT'S ADI, CALLED UPSET BECAUSE SHE SAID THAT HE SEEMED DEPRESSED TO HER. INFORMED THE THAT THE PATIENT HAS BEEN VERY POSITIVE TODAY AND DID NOT SHOW ANY REASONING OF BEING DEPRESSED WITNESSED BY KENAN DELUCA, AND FARZANEH PIPE STEM SAWYER TODAY. THEN SAID THAT THE PATIENT NEEDS TO RECEIVE THE PRESCRIBED VALIUM AND SAID THAT HER FAMILY MEMBER WHO IS A NURSE TOLD HER THAT SHE HAS THE RIGHT TO SAY WHEN SHE CAN ORDER FOR US TO GIVE MEDICATIONS. ADI WAS EDUCATED BY THIS NURSE THAT THE MEDICATION SHOULD NOT BE GIVEN AT THE MOMENT BECAUSE THE PATIENT HAS NOT SHOWN ANY SYMPTOMS OF ANXIETY OR DEPRESSION TODAY. THE ASKED ABOUT CXR RESULTS FOR THE DAY AND SHE WAS INFORMED THAT THERE WAS NOT A CXR DONE TODAY AND THERE ARE NOT ANY CURRENT ORDERS FOR IT. THE THEN ASKED WHEN WAS SHE GOING TO SPEAK TO THE PIPE STEM SAWYER FARZANEH, BECAUSE SHE HAS NOT HEARD FROM HIM TODAY. ADI WAS INFORMED THAT FARZANEH IS ROUNDING AND WILL MOST LIKELY HEAR FROM HIM ONCE HE IS DONE. THE THEN SAID THANKS AND HUNG UP. PATIENT STABLE. WILL CONTINUE TO MONITOR.
[2019-10-28] MEDS ORDERED: SERTRALINE HCL 50 MG TABLET PO SCH (17:20)
--- NOTE | 2019-10-28 17:48 | NUR ---
VIDEO ATTEMPT ATTEMPTED TO SET UP VIDEO LOLA, BUT DESPITE DIFFERENT TRIALS TO CONNECT THE PATIENT'S PHONE TO THE HOSPITAL WIFI, THE PATIENT'S PHONE WOULD NOT CONNECT TO THE WIFI AND THE PATIENT DID NOT HAVE DATA TO DOWNLOAD LOLA TO VIDEO TALK WITH HIS
[2019-10-28] MEDS: SIMVASTATIN 20 MG TABLET PO SCH (21:11)
[2019-10-28] MEDS: POTASSIUM CHLORIDE 10% ELIXIR 20 MEQ/15 ML UDCUP PO PRN (21:21)
[2019-10-28] MEDS: HYDRALAZINE HCL 20 MG/ML VIAL IV PRN (21:56)
[2019-10-29] VITALS (24 sets, daily range): BP systolic 116–174; BP diastolic 51–88
[2019-10-29 04:34] LABS: ABG BASE EXCESS 7.4 mmol/L (-2.0-3.0); ABG HCO3 31.5 mmol/L (21.0-28.0); ABG OXYGEN SATURATION 89.9 % (95.0-99.0); ABG PCO2 42 mmHg (35-48)
[2019-10-29 05:05] LABS: BASOPHILS % (AUTO) 0.1 % (0.0-5.0); EOSINOPHILS % (AUTO) 0.1 % (0.0-8.0); LYMPHOCYTES % (AUTO) 1.2 % (21.0-51.0); MEAN CORPUSCULAR HEMOGLOBIN 31.7 pg (27.0-33.0); MEAN CORPUSCULAR HGB CONC 36.5 g/dL (32.0-36.0); MEAN CORPUSCULAR VOLUME 86.9 fL (79-99); MONOCYTES % (AUTO) 1.4 % (3.0-13.0); NEUTROPHILS % (AUTO) 96.3 % (40.0-77.0); PLATELET COUNT (AUTO) 251 K/uL (130-400); RED BLOOD CELL COUNT(AUTO) 4.95 MIL/uL (4.50-6.20); RED CELL DISTRIBUTION WIDTH 12.2 % (11.0-15.5); WHITE BLOOD COUNT (AUTO) 17.6 K/uL (4.8-10.8)
[2019-10-29] MEDS: HYDRALAZINE HCL 20 MG/ML VIAL IV PRN (05:09)
[2019-10-29 05:31] LABS: CREATININE 0.5 mg/dL (0.5-1.5); POTASSIUM 3.5 mmol/L (3.5-5.1)
[2019-10-29] MEDS: INSULIN HUMULIN R 100 UNIT/ML 3ML SQ SCH ×4 (06:10→20:10)
[2019-10-29] MEDS: TADALAFIL 10 MG PO SCH (09:00)
[2019-10-29] MEDS: FLOVENT IH SCH ×2 (09:09→21:41)
[2019-10-29] MEDS: BENZONATATE 100 MG CAPSULE PO SCH ×3 (09:11→20:03)
[2019-10-29] MEDS: SERTRALINE HCL 50 MG TABLET PO SCH (09:11)
[2019-10-29] MEDS: ASPIRIN 81 MG EC TAB PO SCH (09:11)
[2019-10-29] MEDS: DEXAMETHASONE SOD PHOSPHATE 4 MG/ML 1ML VIAL IVP SCH (09:11)
[2019-10-29] MEDS: ZINC SULFATE 220 CAPSULE PO SCH (09:12)
[2019-10-29] MEDS: GABAPENTIN 100 MG CAPSULE PO SCH ×2 (09:12→20:03)
[2019-10-29] MEDS: ASCORBIC ACID 500 MG TAB PO SCH (09:12)
[2019-10-29] MEDS: FAMOTIDINE 20MG TAB 20 MG TAB PO SCH (09:12)
[2019-10-29] MEDS: ENOXAPARIN SODIUM 40 MG/0.4 ML SYRINGE SQ SCH ×2 (09:13→20:05)
[2019-10-29] MEDS: FUROSEMIDE 10 MG/ML 2ML VIAL IV SCH ×2 (09:13→20:05)
--- NOTE | 2019-10-29 14:36 | NUR ---
MED NOT GIVEN PATIENT BARELY ATE FOOD SO INSULIN WAS NOT GIVEN TO PREVENT HYPOGLYCEMIA.
--- NOTE | 2019-10-29 17:12 | NUR ---
VIDEO CALL PATIENT IS ON ZOOM VIDEO CALL WITH HIS ADI. CHARGE NURSE, REGIONAL MARKETING DIRECTOR YOSI AND CHARGE NURSE MENDOZA INFORMED.
--- NOTE | 2019-10-29 18:25 | NUR ---
BLOOD CLOT WHILE PATIENT WAS ON VIDEO CALL WITH HIS , THE PATIENT VOMITED UP A LARGE BLOOD CLOT. PATIENT REPORTS THAT HE IS FINE. HEAD MIXER PHANI AND CHARGE NURSE MENDOZA BOTH NOTIFIED AND SAW THE BLOOD CLOT. CHARGE NURSE MENDOZA SAID THAT SHE WILL NOTIFY THE ODD JOB LABORER. PATIENT IS CURRENTLY SATING 97% ON OXYGEN AND REPORTS THAT HE FEELS FINE. WILL CONTINUE TO MONITOR PATIENT. Addendum: 10/31/19 at 1612 by Beatriz Adkins RN RN late entry for 10/30/19 Notified SHANTI Bryson about the blood clot that the patient coughed up on the 10/29/19, and she said just to hold the lovenox. No additional orders given Addendum: 11/01/19 at 0942 by Beatriz Adkins RN RN SHANTI Bryson stated to start the patient back on lovenox this morning
[2019-10-29] MEDS: SIMVASTATIN 20 MG TABLET PO SCH (20:04)
[2019-10-30] VITALS (25 sets, daily range): BP systolic 124–169; BP diastolic 58–84
[2019-10-30 04:29] LABS: BASOPHILS % (AUTO) 0.1 % (0.0-5.0); HEMATOCRIT 43.9 % (42-54); LYMPHOCYTES % (AUTO) 1.5 % (21.0-51.0); MEAN CORPUSCULAR HEMOGLOBIN 30.6 pg (27.0-33.0); MEAN CORPUSCULAR HGB CONC 35.5 g/dL (32.0-36.0); MEAN CORPUSCULAR VOLUME 86.2 fL (79-99); MONOCYTES % (AUTO) 1.2 % (3.0-13.0); NEUTROPHILS % (AUTO) 96.6 % (40.0-77.0); PLATELET COUNT (AUTO) 279 K/uL (130-400); RED BLOOD CELL COUNT(AUTO) 5.09 MIL/uL (4.50-6.20); RED CELL DISTRIBUTION WIDTH 12.4 % (11.0-15.5); WHITE BLOOD COUNT (AUTO) 15.6 K/uL (4.8-10.8)
[2019-10-30 04:49] LABS: CREATININE 0.7 mg/dL (0.5-1.5); POTASSIUM 3.4 mmol/L (3.5-5.1)
[2019-10-30] MEDS: TADALAFIL 10 MG PO SCH (09:00)
[2019-10-30] MEDS: FAMOTIDINE 20MG TAB 20 MG TAB PO SCH (09:02)
[2019-10-30] MEDS: DEXAMETHASONE SOD PHOSPHATE 4 MG/ML 1ML VIAL IVP SCH (09:03)
[2019-10-30] MEDS: ENOXAPARIN SODIUM 40 MG/0.4 ML SYRINGE SQ SCH ×2 (09:03→19:53)
[2019-10-30] MEDS: BENZONATATE 100 MG CAPSULE PO SCH ×3 (09:04→19:50)
[2019-10-30] MEDS: ASCORBIC ACID 500 MG TAB PO SCH (09:04)
[2019-10-30] MEDS: GABAPENTIN 100 MG CAPSULE PO SCH ×2 (09:04→19:50)
[2019-10-30] MEDS: ZINC SULFATE 220 CAPSULE PO SCH (09:04)
[2019-10-30] MEDS: SERTRALINE HCL 50 MG TABLET PO SCH (09:04)
[2019-10-30] MEDS: ASPIRIN 81 MG EC TAB PO SCH (09:05)
[2019-10-30] MEDS: FUROSEMIDE 10 MG/ML 2ML VIAL IV SCH ×2 (09:05→19:51)
[2019-10-30] MEDS: FLOVENT IH SCH ×2 (09:06→21:00)
[2019-10-30] MEDS: INSULIN HUMULIN R 100 UNIT/ML 3ML SQ SCH ×4 (09:10→19:58)
--- NOTE | 2019-10-30 15:39 | NUR ---
RD FOLLOW UP Pt Continues with 75gm CC diet order. No report of GI distress, however Pt with poor appetite. Glucerna BID in place. Monitored labs: WBC 15.6, K 3.4, Cl 95, CO2 38, BG 229, Ca 8.1, Alb 2.2. Recommend modify to 60gm CCD Recommend 60mL Promod QD RD to continue to monitor. Please notify as additional nutrition concerns arise. Thank you. Addendum: 10/30/19 at [address] Amended: Links added.
[2019-10-30] MEDS: SIMVASTATIN 20 MG TABLET PO SCH (19:51)
[2019-10-31] VITALS (24 sets, daily range): BP systolic 123–152; BP diastolic 64–82
[2019-10-31 04:03] LABS: ABG BASE EXCESS 10.8 mmol/L (-2.0-3.0); ABG HCO3 35.3 mmol/L (21.0-28.0); ABG OXYGEN SATURATION 80.7 % (95.0-99.0); ABG PCO2 45 mmHg (35-48)
[2019-10-31 04:16] LABS: BASOPHILS % (AUTO) 0.1 % (0.0-5.0); EOSINOPHILS % (AUTO) 0.2 % (0.0-8.0); HEMATOCRIT 45.5 % (42-54); LYMPHOCYTES % (AUTO) 1.8 % (21.0-51.0); MEAN CORPUSCULAR HEMOGLOBIN 30.4 pg (27.0-33.0); MEAN CORPUSCULAR HGB CONC 35.2 g/dL (32.0-36.0); MEAN CORPUSCULAR VOLUME 86.3 fL (79-99); MONOCYTES % (AUTO) 1.2 % (3.0-13.0); NEUTROPHILS % (AUTO) 96.1 % (40.0-77.0); PLATELET COUNT (AUTO) 295 K/uL (130-400); RED BLOOD CELL COUNT(AUTO) 5.27 MIL/uL (4.50-6.20); RED CELL DISTRIBUTION WIDTH 12.4 % (11.0-15.5); WHITE BLOOD COUNT (AUTO) 17.3 K/uL (4.8-10.8)
[2019-10-31 05:12] LABS: ALBUMIN 1.9 g/dL (3.5-5.0); BILIRUBIN,TOTAL 0.8 mg/dL (0.2-1.0); CREATININE 0.6 mg/dL (0.5-1.5); POTASSIUM 3.4 mmol/L (3.5-5.1); TOTAL PROTEIN, SERUM 6.9 g/dL (6.0-8.3)
[2019-10-31] MEDS: INSULIN HUMULIN R 100 UNIT/ML 3ML SQ SCH ×4 (06:07→20:24)
[2019-10-31] MEDS: TADALAFIL 10 MG PO SCH (09:00)
[2019-10-31] MEDS: ENOXAPARIN SODIUM 40 MG/0.4 ML SYRINGE SQ SCH ×2 (09:00→19:36)
[2019-10-31] MEDS: ASPIRIN 81 MG EC TAB PO SCH (09:18)
[2019-10-31] MEDS: FLOVENT IH SCH ×2 (09:18→19:38)
[2019-10-31] MEDS: GABAPENTIN 100 MG CAPSULE PO SCH ×2 (09:18→19:37)
[2019-10-31] MEDS: ZINC SULFATE 220 CAPSULE PO SCH (09:18)
[2019-10-31] MEDS: ASCORBIC ACID 500 MG TAB PO SCH (09:18)
[2019-10-31] MEDS: SERTRALINE HCL 50 MG TABLET PO SCH (09:19)
[2019-10-31] MEDS: FAMOTIDINE 20MG TAB 20 MG TAB PO SCH (09:19)
[2019-10-31] MEDS: FUROSEMIDE 10 MG/ML 2ML VIAL IV SCH ×2 (09:19→19:37)
[2019-10-31] MEDS: BENZONATATE 100 MG CAPSULE PO SCH ×3 (09:19→19:37)
[2019-10-31] MEDS: SIMVASTATIN 20 MG TABLET PO SCH (19:37)
[2019-11-01] VITALS (18 sets, daily range): BP systolic 117–139; BP diastolic 63–80
[2019-11-01 04:12] LABS: ABG BASE EXCESS 13.9 mmol/L (-2.0-3.0); ABG HCO3 39.2 mmol/L (21.0-28.0); ABG OXYGEN SATURATION 87.9 % (95.0-99.0); ABG PCO2 50 mmHg (35-48)
[2019-11-01 05:26] LABS: BASOPHILS % (AUTO) 0.1 % (0.0-5.0); EOSINOPHILS % (AUTO) 0.3 % (0.0-8.0); HEMATOCRIT 44.7 % (42-54); LYMPHOCYTES % (AUTO) 1.9 % (21.0-51.0); MEAN CORPUSCULAR HEMOGLOBIN 30.9 pg (27.0-33.0); MEAN CORPUSCULAR HGB CONC 35.8 g/dL (32.0-36.0); MEAN CORPUSCULAR VOLUME 86.3 fL (79-99); MONOCYTES % (AUTO) 1.6 % (3.0-13.0); NEUTROPHILS % (AUTO) 95.5 % (40.0-77.0); PLATELET COUNT (AUTO) 287 K/uL (130-400); RED BLOOD CELL COUNT(AUTO) 5.18 MIL/uL (4.50-6.20); RED CELL DISTRIBUTION WIDTH 12.3 % (11.0-15.5); WHITE BLOOD COUNT (AUTO) 15.1 K/uL (4.8-10.8)
[2019-11-01 05:50] LABS: ALBUMIN 1.9 g/dL (3.5-5.0); BILIRUBIN,TOTAL 0.7 mg/dL (0.2-1.0); CREATININE 0.6 mg/dL (0.5-1.5); MAGNESIUM 2.2 mg/dL (1.80-2.40); PHOSPHORUS 3.3 mg/dL (2.5-4.9); POTASSIUM 3.2 mmol/L (3.5-5.1); TOTAL PROTEIN, SERUM 7.1 g/dL (6.0-8.3)
[2019-11-01] MEDS: INSULIN HUMULIN R 100 UNIT/ML 3ML SQ SCH ×4 (07:30→21:12)
[2019-11-01] MEDS: FLOVENT IH SCH ×2 (08:54→20:18)
[2019-11-01] MEDS: FAMOTIDINE 20MG TAB 20 MG TAB PO SCH (08:55)
[2019-11-01] MEDS: ASCORBIC ACID 500 MG TAB PO SCH (08:55)
[2019-11-01] MEDS: SERTRALINE HCL 50 MG TABLET PO SCH (08:56)
[2019-11-01] MEDS: GABAPENTIN 100 MG CAPSULE PO SCH ×2 (08:56→20:42)
[2019-11-01] MEDS: BENZONATATE 100 MG CAPSULE PO SCH ×3 (08:56→20:42)
[2019-11-01] MEDS: ZINC SULFATE 220 CAPSULE PO SCH (08:56)
[2019-11-01] MEDS: ENOXAPARIN SODIUM 40 MG/0.4 ML SYRINGE SQ SCH ×2 (08:58→20:43)
[2019-11-01] MEDS: FUROSEMIDE 10 MG/ML 2ML VIAL IV SCH (08:59)
[2019-11-01] MEDS: TADALAFIL 10 MG PO SCH (09:00)
[2019-11-01] MEDS: POTASSIUM CHLORIDE 10% ELIXIR 20 MEQ/15 ML UDCUP PO PRN ×4 (09:23→20:43)
[2019-11-01] MEDS: ASPIRIN 81 MG EC TAB PO SCH (09:24)
--- NOTE | 2019-11-01 12:22 | NUR ---
DC PLAN GAVE PACKET FOR CDA. HAD NURSE EXPLAIN THAT I WOULD BE CALLING AND EXPLAINING INFO. CALLED PATIENT ROOM. NO ANSWER. CLEO WILL CONTINUE TO MONITOR. Addendum: 11/01/19 at 1223 by CORIE LEYVA RN CM Amended: Links added.
--- NOTE | 2019-11-01 16:54 | NUR ---
HANDOFF HANDOFF REPORT GIVEN TO NURSE JANE. PATIENT STABLE AT BEDSIDE, SLEEPING.
[2019-11-01] MEDS: SIMVASTATIN 20 MG TABLET PO SCH (20:43)
[2019-11-01] MEDS: POTASSIUM CHLORIDE 20 MEQ ERTAB PO PRN (22:41)
[2019-11-02 00:14] VITALS: BP 116/73
[2019-11-02 03:25] LABS: ABG BASE EXCESS 13.8 mmol/L (-2.0-3.0); ABG HCO3 39.8 mmol/L (21.0-28.0); ABG OXYGEN SATURATION 88.4 % (95.0-99.0); ABG PCO2 54 mmHg (35-48)
[2019-11-02 04:15] VITALS: BP 124/62
[2019-11-02 05:20] LABS: BASOPHILS % (AUTO) 0.1 % (0.0-5.0); EOSINOPHILS % (AUTO) 0.4 % (0.0-8.0); HEMATOCRIT 45.4 % (42-54); LYMPHOCYTES % (AUTO) 2.6 % (21.0-51.0); MEAN CORPUSCULAR HEMOGLOBIN 30.7 pg (27.0-33.0); MEAN CORPUSCULAR HGB CONC 35.7 g/dL (32.0-36.0); MONOCYTES % (AUTO) 1.7 % (3.0-13.0); NEUTROPHILS % (AUTO) 94.4 % (40.0-77.0); PLATELET COUNT (AUTO) 303 K/uL (130-400); RED BLOOD CELL COUNT(AUTO) 5.28 MIL/uL (4.50-6.20); RED CELL DISTRIBUTION WIDTH 12.5 % (11.0-15.5); WHITE BLOOD COUNT (AUTO) 13.3 K/uL (4.8-10.8)
[2019-11-02 05:35] LABS: ALBUMIN 1.8 g/dL (3.5-5.0); BILIRUBIN,TOTAL 0.7 mg/dL (0.2-1.0); CREATININE 0.5 mg/dL (0.5-1.5); MAGNESIUM 2.9 mg/dL (1.80-2.40); PHOSPHORUS 3.1 mg/dL (2.5-4.9); POTASSIUM 3.3 mmol/L (3.5-5.1); TOTAL PROTEIN, SERUM 7.2 g/dL (6.0-8.3)
[2019-11-02] MEDS: INSULIN HUMULIN R 100 UNIT/ML 3ML SQ SCH ×4 (06:40→20:51)
[2019-11-02] MEDS: FLOVENT IH SCH ×2 (07:46→20:48)
[2019-11-02] MEDS: TADALAFIL 10 MG PO SCH (07:47)
[2019-11-02] MEDS: ASCORBIC ACID 500 MG TAB PO SCH (09:03)
[2019-11-02] MEDS: ENOXAPARIN SODIUM 40 MG/0.4 ML SYRINGE SQ SCH ×2 (09:03→20:49)
[2019-11-02] MEDS: SERTRALINE HCL 50 MG TABLET PO SCH (09:03)
[2019-11-02] MEDS: GABAPENTIN 100 MG CAPSULE PO SCH ×2 (09:04→20:49)
[2019-11-02] MEDS: ASPIRIN 81 MG EC TAB PO SCH (09:04)
[2019-11-02] MEDS: BENZONATATE 100 MG CAPSULE PO SCH ×3 (09:04→20:49)
[2019-11-02] MEDS: ZINC SULFATE 220 CAPSULE PO SCH (09:04)
[2019-11-02 09:05] VITALS: BP 122/68
[2019-11-02 12:00] VITALS: BP 136/74
[2019-11-02 16:00] VITALS: BP 134/74
[2019-11-02] MEDS: POTASSIUM CHLORIDE 20 MEQ ERTAB PO PRN ×2 (19:46→23:29)
[2019-11-02 20:30] VITALS: BP 132/72
[2019-11-02] MEDS: SIMVASTATIN 20 MG TABLET PO SCH (20:49)
[2019-11-03] VITALS (7 sets, daily range): BP systolic 110–141; BP diastolic 63–80
[2019-11-03 04:29] LABS: ABG BASE EXCESS 11.3 mmol/L (-2.0-3.0); ABG HCO3 36.9 mmol/L (21.0-28.0); ABG OXYGEN SATURATION 89.6 % (95.0-99.0); ABG PCO2 51 mmHg (35-48)
[2019-11-03 05:08] LABS: BASOPHILS % (AUTO) 0.1 % (0.0-5.0); EOSINOPHILS % (AUTO) 0.6 % (0.0-8.0); LYMPHOCYTES % (AUTO) 2.4 % (21.0-51.0); MEAN CORPUSCULAR HEMOGLOBIN 29.9 pg (27.0-33.0); MEAN CORPUSCULAR HGB CONC 34.7 g/dL (32.0-36.0); MEAN CORPUSCULAR VOLUME 86.4 fL (79-99); NEUTROPHILS % (AUTO) 94.4 % (40.0-77.0); PLATELET COUNT (AUTO) 330 K/uL (130-400); RED BLOOD CELL COUNT(AUTO) 5.21 MIL/uL (4.50-6.20); RED CELL DISTRIBUTION WIDTH 12.7 % (11.0-15.5); WHITE BLOOD COUNT (AUTO) 15.2 K/uL (4.8-10.8)
[2019-11-03 05:38] LABS: ALBUMIN 1.8 g/dL (3.5-5.0); BILIRUBIN,TOTAL 0.6 mg/dL (0.2-1.0); CREATININE 0.5 mg/dL (0.5-1.5); TOTAL PROTEIN, SERUM 7.1 g/dL (6.0-8.3)
[2019-11-03] MEDS: INSULIN HUMULIN R 100 UNIT/ML 3ML SQ SCH ×4 (06:43→21:51)
[2019-11-03] MEDS: FLOVENT IH SCH ×2 (07:55→21:50)
[2019-11-03] MEDS: TADALAFIL 10 MG PO SCH (07:55)
[2019-11-03] MEDS: SERTRALINE HCL 50 MG TABLET PO SCH (09:05)
[2019-11-03] MEDS: BENZONATATE 100 MG CAPSULE PO SCH ×3 (09:05→21:50)
[2019-11-03] MEDS: ASPIRIN 81 MG EC TAB PO SCH (09:06)
[2019-11-03] MEDS: GABAPENTIN 100 MG CAPSULE PO SCH ×2 (09:06→21:50)
[2019-11-03] MEDS: ZINC SULFATE 220 CAPSULE PO SCH (09:06)
[2019-11-03] MEDS: ASCORBIC ACID 500 MG TAB PO SCH (09:06)
[2019-11-03] MEDS: ENOXAPARIN SODIUM 40 MG/0.4 ML SYRINGE SQ SCH ×2 (09:06→21:51)
[2019-11-03] MEDS: SIMVASTATIN 20 MG TABLET PO SCH (21:50)
[2019-11-04 03:41] VITALS: BP 150/98
[2019-11-04 04:30] LABS: ABG HCO3 32.9 mmol/L (21.0-28.0); ABG OXYGEN SATURATION 91.5 % (95.0-99.0); ABG PCO2 46 mmHg (35-48)
[2019-11-04 05:16] LABS: BASOPHILS % (AUTO) 0.2 % (0.0-5.0); EOSINOPHILS % (AUTO) 0.2 % (0.0-8.0); HEMATOCRIT 44.4 % (42-54); LYMPHOCYTES % (AUTO) 1.8 % (21.0-51.0); MEAN CORPUSCULAR HEMOGLOBIN 30.3 pg (27.0-33.0); MEAN CORPUSCULAR HGB CONC 34.9 g/dL (32.0-36.0); MEAN CORPUSCULAR VOLUME 86.9 fL (79-99); NEUTROPHILS % (AUTO) 95.2 % (40.0-77.0); PLATELET COUNT (AUTO) 355 K/uL (130-400); RED BLOOD CELL COUNT(AUTO) 5.11 MIL/uL (4.50-6.20); RED CELL DISTRIBUTION WIDTH 12.7 % (11.0-15.5); WHITE BLOOD COUNT (AUTO) 17.2 K/uL (4.8-10.8)
[2019-11-04 05:38] LABS: ALBUMIN 1.8 g/dL (3.5-5.0); BILIRUBIN,TOTAL 0.7 mg/dL (0.2-1.0); CREATININE 0.5 mg/dL (0.5-1.5); TOTAL PROTEIN, SERUM 7.2 g/dL (6.0-8.3)
[2019-11-04] MEDS: INSULIN HUMULIN R 100 UNIT/ML 3ML SQ SCH ×4 (06:08→21:00)
[2019-11-04 08:40] VITALS: BP 136/82
[2019-11-04] MEDS: TADALAFIL 10 MG PO SCH (09:00)
[2019-11-04] MEDS: SERTRALINE HCL 50 MG TABLET PO SCH (09:05)
[2019-11-04] MEDS: ZINC SULFATE 220 CAPSULE PO SCH (09:05)
[2019-11-04] MEDS: ASPIRIN 81 MG EC TAB PO SCH (09:05)
[2019-11-04] MEDS: ENOXAPARIN SODIUM 40 MG/0.4 ML SYRINGE SQ SCH (09:05)
[2019-11-04] MEDS: BENZONATATE 100 MG CAPSULE PO SCH ×3 (09:05→22:00)
[2019-11-04] MEDS: ASCORBIC ACID 500 MG TAB PO SCH (09:05)
[2019-11-04] MEDS: GABAPENTIN 100 MG CAPSULE PO SCH ×2 (09:06→22:01)
[2019-11-04] MEDS: FLOVENT IH SCH (09:09)
[2019-11-04 12:00] VITALS: BP 140/69
[2019-11-04 16:00] VITALS: BP 154/86
[2019-11-04] MEDS: LEVOFLOXACIN 750 MG TABLET PO SCH (16:10)
--- NOTE | 2019-11-04 18:43 | NUR ---
ZOOM TRIED TO CONNECT ZOOM WITH SPOUSE. FIRST CALL UNABLE TO CONNECT.SPOUSE WORKING ON GETTING ANOTHER MEETING SET UP.WILL COMMUNICATE TO NIGHTSHIFT STAFF.PATIENT IN BED AT THIS TIME AT [facility].VSS
[2019-11-04 20:22] VITALS: BP 142/86
[2019-11-04] MEDS: SIMVASTATIN 20 MG TABLET PO SCH (22:00)
[2019-11-05 00:11] VITALS: BP 126/85
[2019-11-05 04:11] VITALS: BP 132/82
[2019-11-05 04:43] LABS: ABG BASE EXCESS 6.2 mmol/L (-2.0-3.0); ABG HCO3 30.8 mmol/L (21.0-28.0); ABG OXYGEN SATURATION 91.9 % (95.0-99.0); ABG PCO2 44 mmHg (35-48)
[2019-11-05 05:12] LABS: HEMATOCRIT 44.8 % (42-54); MEAN CORPUSCULAR HEMOGLOBIN 29.7 pg (27.0-33.0); MEAN CORPUSCULAR HGB CONC 34.2 g/dL (32.0-36.0); RED BLOOD CELL COUNT(AUTO) 5.15 MIL/uL (4.50-6.20); RED CELL DISTRIBUTION WIDTH 12.8 % (11.0-15.5); WHITE BLOOD COUNT (AUTO) 14.6 K/uL (4.8-10.8)
[2019-11-05 05:35] LABS: ALBUMIN 1.8 g/dL (3.5-5.0); BILIRUBIN,TOTAL 0.7 mg/dL (0.2-1.0); CREATININE 0.6 mg/dL (0.5-1.5); MAGNESIUM 2.9 mg/dL (1.80-2.40); PHOSPHORUS 3.9 mg/dL (2.5-4.9); POTASSIUM 4.1 mmol/L (3.5-5.1); TOTAL PROTEIN, SERUM 7.2 g/dL (6.0-8.3)
[2019-11-05] MEDS: INSULIN HUMULIN R 100 UNIT/ML 3ML SQ SCH ×4 (06:58→21:00)
[2019-11-05 08:53] VITALS: BP 136/92
[2019-11-05] MEDS: ZINC SULFATE 220 CAPSULE PO SCH (09:00)
[2019-11-05] MEDS: TADALAFIL 10 MG PO SCH (09:00)
[2019-11-05] MEDS: LEVOFLOXACIN 750 MG TABLET PO SCH (09:09)
[2019-11-05] MEDS: ASPIRIN 81 MG EC TAB PO SCH (09:09)
[2019-11-05] MEDS: BENZONATATE 100 MG CAPSULE PO SCH ×3 (09:09→21:00)
[2019-11-05] MEDS: ASCORBIC ACID 500 MG TAB PO SCH (09:09)
[2019-11-05] MEDS: SERTRALINE HCL 50 MG TABLET PO SCH (09:09)
[2019-11-05] MEDS: GABAPENTIN 100 MG CAPSULE PO SCH ×2 (09:09→21:00)
[2019-11-05 11:29] VITALS: BP 128/85
[2019-11-05] MEDS: FUROSEMIDE 10 MG/ML 4ML VIAL IV SCH (15:13)
[2019-11-05 16:32] VITALS: BP 126/71
--- NOTE | 2019-11-05 19:34 | NUR ---
RECEIVED PATIENT RECEIVED PT IN BED, AWAKE, ALERT AND ORIENTED X2. 02 SAT AT 87%, ADJUSTED MASK AND NC. ON FACE, 02 INCREASED TO 91%. ENCOURAGED PT TO TRY PRONE AFTER MEDICATION ADMINISTRATION, PT VERBALIZED UNDERSTANDING.
[2019-11-05 20:00] VITALS: BP 158/96
[2019-11-05] MEDS: SIMVASTATIN 20 MG TABLET PO SCH (21:00)
[2019-11-06] VITALS: BP 146/88
[2019-11-06] MEDS: FUROSEMIDE 10 MG/ML 4ML VIAL IV SCH (02:00)
[2019-11-06 04:00] VITALS: BP 136/73
[2019-11-06 04:23] LABS: BASOPHILS % (AUTO) 0.1 % (0.0-5.0); EOSINOPHILS % (AUTO) 0.2 % (0.0-8.0); HEMATOCRIT 45.8 % (42-54); LYMPHOCYTES % (AUTO) 2.3 % (21.0-51.0); MEAN CORPUSCULAR HEMOGLOBIN 30.3 pg (27.0-33.0); MEAN CORPUSCULAR HGB CONC 34.1 g/dL (32.0-36.0); MEAN CORPUSCULAR VOLUME 88.9 fL (79-99); MONOCYTES % (AUTO) 2.2 % (3.0-13.0); NEUTROPHILS % (AUTO) 94.4 % (40.0-77.0); PLATELET COUNT (AUTO) 385 K/uL (130-400); RED BLOOD CELL COUNT(AUTO) 5.15 MIL/uL (4.50-6.20); RED CELL DISTRIBUTION WIDTH 12.9 % (11.0-15.5); WHITE BLOOD COUNT (AUTO) 17.1 K/uL (4.8-10.8)
[2019-11-06 04:47] LABS: ALBUMIN 1.9 g/dL (3.5-5.0); BILIRUBIN,TOTAL 0.7 mg/dL (0.2-1.0); CREATININE 0.7 mg/dL (0.5-1.5); POTASSIUM 3.7 mmol/L (3.5-5.1); TOTAL PROTEIN, SERUM 7.4 g/dL (6.0-8.3)
[2019-11-06 08:00] VITALS: BP 140/97
[2019-11-06] MEDS: ASPIRIN 81 MG EC TAB PO SCH (08:52)
[2019-11-06] MEDS: ZINC SULFATE 220 CAPSULE PO SCH (08:53)
[2019-11-06] MEDS: LEVOFLOXACIN 750 MG TABLET PO SCH (08:53)
[2019-11-06] MEDS: ASCORBIC ACID 500 MG TAB PO SCH (08:53)
[2019-11-06] MEDS: GABAPENTIN 100 MG CAPSULE PO SCH ×2 (08:53→20:09)
[2019-11-06] MEDS: BENZONATATE 100 MG CAPSULE PO SCH ×3 (08:53→20:09)
[2019-11-06] MEDS: SERTRALINE HCL 50 MG TABLET PO SCH (08:53)
[2019-11-06] MEDS: INSULIN HUMULIN R 100 UNIT/ML 3ML SQ SCH ×4 (09:09→20:14)
[2019-11-06] MEDS ORDERED: VANCOMYCIN 1GM+NS 250ML 250 ML IV SCH (09:15)
[2019-11-06] MEDS ORDERED: VANCOMYCIN PROTOCOL PER PHARMACY IV SCH (09:15)
[2019-11-06] MEDS: VANCOMYCIN 1GM+NS 250ML 250 ML IV SCH ×2 (10:37→20:18)
[2019-11-06] MEDS: CEFEPIME HCL 2 GM VIAL IVP SCH ×2 (10:37→20:15)
[2019-11-06 12:00] VITALS: BP 117/81
[2019-11-06] MEDS: ALBUTEROL INHALER 90MCG/INH IH SCH ×2 (12:00→17:36)
[2019-11-06] MEDS: TADALAFIL 10 MG PO SCH (13:55)
--- NOTE | 2019-11-06 14:54 | NUR ---
RD FOLLOW UP Pt pending Dobhoff placement. Recommend Continuous tube feeding Vital AF 1.2 initiated at 15mls/hr. Goal 40mls/hr Recommend flush 130ml Q6hrs Recommendations faxed to 2A ([id number]), RN notified. NUTRITION NOTE Pt with 0% PO intake on 60gm CC diet order. Glucerna BID, 60mL ProMod QD. LBM 11/02/19. Alb 1.9, BG 176, Alk 158, BUN 25, WBC 17.1. Vitamin C and zinc in place. RD to continue to monitor. Please notify as additional nutrition concerns arise. Thank you. Addendum: 11/06/19 at [address] Amended: Links added.
--- NOTE | 2019-11-06 15:21 | NUR ---
attempted to put NGT in pt. pt desating to 70s during insertion attempt. pt placed bakc on high flow and nrb will attempt later on when more stable.
[2019-11-06 15:35] VITALS: BP 119/78
[2019-11-06 20:00] VITALS: BP 106/66
[2019-11-06] MEDS: SIMVASTATIN 20 MG TABLET PO SCH (20:13)
[2019-11-07] VITALS (7 sets, daily range): BP systolic 103–143; BP diastolic 67–78
[2019-11-07 03:51] LABS: ABG BASE EXCESS 10.8 mmol/L (-2.0-3.0); ABG HCO3 36.5 mmol/L (21.0-28.0); ABG OXYGEN SATURATION 90.8 % (95.0-99.0); ABG PCO2 52 mmHg (35-48)
[2019-11-07 04:38] LABS: CREATININE 0.6 mg/dL (0.5-1.5); POTASSIUM 3.9 mmol/L (3.5-5.1)
[2019-11-07] MEDS: ALBUTEROL INHALER 90MCG/INH IH SCH ×4 (04:51→18:00)
[2019-11-07 05:00] LABS: BASOPHILS % (AUTO) 0.1 % (0.0-5.0); EOSINOPHILS % (AUTO) 0.9 % (0.0-8.0); HEMATOCRIT 44.3 % (42-54); LYMPHOCYTES % (AUTO) 1.9 % (21.0-51.0); MEAN CORPUSCULAR HGB CONC 34.3 g/dL (32.0-36.0); MEAN CORPUSCULAR VOLUME 87.5 fL (79-99); NEUTROPHILS % (AUTO) 94.5 % (40.0-77.0); PLATELET COUNT (AUTO) 366 K/uL (130-400); RED BLOOD CELL COUNT(AUTO) 5.06 MIL/uL (4.50-6.20); WHITE BLOOD COUNT (AUTO) 17.6 K/uL (4.8-10.8)
[2019-11-07] MEDS: INSULIN HUMULIN R 100 UNIT/ML 3ML SQ SCH ×4 (06:42→20:07)
[2019-11-07] MEDS: TADALAFIL 10 MG PO SCH (09:00)
[2019-11-07] MEDS: GABAPENTIN 100 MG CAPSULE PO SCH ×2 (09:01→20:06)
[2019-11-07] MEDS: ASCORBIC ACID 500 MG TAB PO SCH (09:01)
[2019-11-07] MEDS: ASPIRIN 81 MG EC TAB PO SCH (09:01)
[2019-11-07] MEDS: ZINC SULFATE 220 CAPSULE PO SCH (09:01)
[2019-11-07] MEDS: CEFEPIME HCL 2 GM VIAL IVP SCH ×2 (09:01→20:07)
[2019-11-07] MEDS: SERTRALINE HCL 50 MG TABLET PO SCH (09:01)
[2019-11-07] MEDS: VANCOMYCIN 1GM+NS 250ML 250 ML IV SCH ×2 (09:02→21:55)
[2019-11-07] MEDS: BENZONATATE 100 MG CAPSULE PO SCH ×3 (09:03→20:06)
--- NOTE | 2019-11-07 11:00 | NUR ---
DYSPHAGIA EVAL COMPLETED. -S/S OF ASPIRATION. RECOMMEND MECHANICAL SOFT/CHOPPED, THIN LIQUIDS; PILLS WHOLE WITH LIQUIDS; COMPENSATORY STRATEGIES: *ADD GRAVY TO MEATS *SLOW RATE *SMALL BITES AND SIPS HEALTH LEAD COORDINATED CARE WITH NURSE GUZMAN AT THIS TIME. Addendum: 11/07/19 at 1416 by STEPHANIE MAN, [facility] Amended: Links added.
[2019-11-07] MEDS: SIMVASTATIN 20 MG TABLET PO SCH (20:06)
[2019-11-07 20:39] LABS: CREATININE 0.5 mg/dL (0.5-1.5); POTASSIUM 4.3 mmol/L (3.5-5.1)
[2019-11-07 22:10] LABS: HEMATOCRIT 44.9 % (42-54); MEAN CORPUSCULAR HGB CONC 33.9 g/dL (32.0-36.0); MEAN CORPUSCULAR VOLUME 88.6 fL (79-99); RED BLOOD CELL COUNT(AUTO) 5.07 MIL/uL (4.50-6.20); RED CELL DISTRIBUTION WIDTH 13.2 % (11.0-15.5)
--- NOTE | 2019-11-08 | NUR ---
Low 02 Sat While wearing NC and Non Re-breathing mask, patient 02 was between 83-86%, Called Respiratory to access patient, she placed patient on Bi-Pap, will continue to monitor.
[2019-11-08] MEDS: ALBUTEROL INHALER 90MCG/INH IH SCH ×4 (00:41→17:55)
[2019-11-08 01:19] LABS: ABG BASE EXCESS 3.4 mmol/L (-2.0-3.0); ABG HCO3 28.9 mmol/L (21.0-28.0); ABG OXYGEN SATURATION 77.1 % (95.0-99.0); ABG PCO2 47 mmHg (35-48)
--- NOTE | 2019-11-08 02:30 | NUR ---
02 Update Patient on Bipap., Sats 96-99% resting comfortably, no distress noted.
[2019-11-08 03:58] VITALS: BP 116/75
[2019-11-08] MEDS: VANCOMYCIN 1GM+NS 250ML 250 ML IV SCH ×3 (05:33→22:20)
[2019-11-08] MEDS: INSULIN HUMULIN R 100 UNIT/ML 3ML SQ SCH ×4 (06:26→20:31)
[2019-11-08 08:00] VITALS: BP 152/95
[2019-11-08] MEDS: TADALAFIL 10 MG PO SCH (09:00)
[2019-11-08] MEDS: ZINC SULFATE 220 CAPSULE PO SCH (10:52)
[2019-11-08] MEDS: ASPIRIN 81 MG EC TAB PO SCH (10:52)
[2019-11-08] MEDS: SERTRALINE HCL 50 MG TABLET PO SCH (10:52)
[2019-11-08] MEDS: CEFEPIME HCL 2 GM VIAL IVP SCH ×2 (10:52→21:15)
[2019-11-08] MEDS: BENZONATATE 100 MG CAPSULE PO SCH ×3 (10:52→21:16)
[2019-11-08] MEDS: GABAPENTIN 100 MG CAPSULE PO SCH ×2 (10:52→21:15)
[2019-11-08] MEDS: ASCORBIC ACID 500 MG TAB PO SCH (10:52)
[2019-11-08 12:00] VITALS: BP 113/65
[2019-11-08 16:00] VITALS: BP 132/76
[2019-11-08] MEDS: ENOXAPARIN SODIUM 40 MG/0.4 ML SYRINGE SQ SCH (16:46)
--- NOTE | 2019-11-08 17:18 | NUR ---
PAtient using bipap continuously not eating very much blood glucose 153mg/dL will hold insulin dose to prevent hypoglycemia.
[2019-11-08 19:00] VITALS: BP 141/77
[2019-11-08] MEDS: SIMVASTATIN 20 MG TABLET PO SCH (21:15)
[2019-11-08 23:00] VITALS: BP 155/77
--- NOTE | 2019-11-08 23:19 | NUR ---
Spoke w/pt's Giselle at [phone]. Pt's requests attending physician Dr. Field call her to discuss plan of care. Chief concerns of hers are nutrition, pt does not eat much with BiPap on; another round of convalescent plasma; and experimental medications being used at other hospitals. -CPT Fransisco WIN
[2019-11-09 03:00] VITALS: BP 99/52
[2019-11-09] MEDS: ALBUTEROL INHALER 90MCG/INH IH SCH ×2 (05:25)
[2019-11-09] MEDS: VANCOMYCIN 1GM+NS 250ML 250 ML IV SCH (05:25)
[2019-11-09] MEDS: INSULIN HUMULIN R 100 UNIT/ML 3ML SQ SCH ×2 (06:03→11:30)
[2019-11-09 07:55] VITALS: BP 120/70
[2019-11-09] MEDS: TADALAFIL 10 MG PO SCH (09:00)
[2019-11-09] MEDS: SERTRALINE HCL 50 MG TABLET PO SCH (09:00)
[2019-11-09] MEDS ORDERED: LORAZEPAM 2 MG/ML 1 ML VIAL IVP SCH (09:00)
[2019-11-09] MEDS: ENOXAPARIN SODIUM 40 MG/0.4 ML SYRINGE SQ SCH (09:43)
[2019-11-09] MEDS: ASPIRIN 81 MG EC TAB PO SCH (09:44)
[2019-11-09] MEDS: ASCORBIC ACID 500 MG TAB PO SCH (09:44)
[2019-11-09] MEDS: GABAPENTIN 100 MG CAPSULE PO SCH (09:44)
[2019-11-09] MEDS: ZINC SULFATE 220 CAPSULE PO SCH (09:44)
[2019-11-09] MEDS: BENZONATATE 100 MG CAPSULE PO SCH (09:44)
--- NOTE | 2019-11-09 10:00 | NUR ---
UPDATED BY PHONE ON PT DECISION TO BECOME DNR/DNI. STATED SHE KNEW ABOUT PT NOT WANTED TO BE INTUBATED BUT NOT DNR. EDUCATED ON BOTH RN'S WITNESSED PT DECISSION.
[2019-11-09] MEDS: CEFEPIME HCL 2 GM VIAL IVP SCH (10:01)
[2019-11-09] MEDS ORDERED: SODIUM CHLORIDE 0.9% 500ML 500 ML IV ONE (11:28)
[2019-11-09] MEDS ORDERED: SODIUM CHLORIDE 0.9% 500ML 500 ML IV SCH (11:30)
[2019-11-09] MEDS ORDERED: VANCOMYCIN 2 GM in SODIUM CHLORIDE 0.9% 500ML 500 ML IV SCH (14:00)
--- NOTE | 2019-11-09 15:57 | NUR ---
AT 10: 53 AM GEODESY TEACHER REPORTED LOW BLOOD PRESSURE TO RN . RN GOT ORDER TO INFUSE FLUIDS TO INCREASE BLOOD PRESSURE. AT 12:15 BP WAS 56/34. PT AT 12:17.
[2019-11-09] MEDS ORDERED: VANCOMYCIN 1GM+NS 250ML 250 ML IV SCH (22:00)
== END 2019-11-09 12:43 | disposition expired | DRG 177 ==
LOC: EDH 16:28 → EDHIP 18:50 → 3AH 21:03 → 2AH 10-22 17:31
PROVIDERS: ADMIT Internal Medicine; ATTEND Internal Medicine
PROC: XW033E5 Introduction of Remdesivir Anti-infective into Peripheral Vein, Percutaneous Approach, New Technology Group 5 (ICD-10-PCS; 2019-10-20)
PROC: XW13325 Transfusion of Convalescent Plasma (Nonautologous) into Peripheral Vein, Percutaneous Approach, New Technology Group 5 (ICD-10-PCS; principal; 2019-10-21)
PROC: XW033E5 Introduction of Remdesivir Anti-infective into Peripheral Vein, Percutaneous Approach, New Technology Group 5 (ICD-10-PCS; 2019-10-21)
PROC: 5A09357 Assistance with Respiratory Ventilation, Less than 24 Consecutive Hours, Continuous Positive Airway Pressure (ICD-10-PCS; 2019-10-23)
PROC: 5A09357 Assistance with Respiratory Ventilation, Less than 24 Consecutive Hours, Continuous Positive Airway Pressure (ICD-10-PCS; 2019-10-25)
PROC: 5A09357 Assistance with Respiratory Ventilation, Less than 24 Consecutive Hours, Continuous Positive Airway Pressure (ICD-10-PCS; 2019-10-26)
PROC: 5A09357 Assistance with Respiratory Ventilation, Less than 24 Consecutive Hours, Continuous Positive Airway Pressure (ICD-10-PCS; 2019-10-27)
PROC: 5A09357 Assistance with Respiratory Ventilation, Less than 24 Consecutive Hours, Continuous Positive Airway Pressure (ICD-10-PCS; 2019-11-08)
DX: U07.1 COVID-19 (principal); J12.89 Other viral pneumonia; J96.01 Acute respiratory failure with hypoxia; E46 Unspecified protein-calorie malnutrition; K92.0 Hematemesis; E11.65 Type 2 diabetes mellitus with hyperglycemia; I10 Essential (primary) hypertension; Z68.21 Body mass index [BMI] 21.0-21.9, adult
CPT/HCPCS: 36415; 36430; 36600; 71045; 80048; 80053; 80076; 80202; 81001; 82435; 82550; 82728; 82803; 82947; 82948; 83605; 83615; 83735; 83874; 84100; 84132; 84145; 84295; 84484; 85018; 85025; 85027; 85378; 85610; 85730; 86140; 86900; 86901; 86927; 87040; 87071; 87088; 87205; 87426; 92610; 93005; 94660; 94664; 94760; 99291; G0378; J0360; J0692; J0696; J1100; J1200; J1650; J1815; J1940; J2060; J2920; J3370; J7030; J7040; J7050; J8540; Q0163